=== PATIENT | male | born 1940 | race Caucasian/White ===

== ENCOUNTER 2017-01-07 12:34 | Emergency (ER) | payer MEDICARE, OTHER ==
[2017-01-07] MEDS ORDERED: METFORMIN HCL500 M2 PO (12:56)
[2017-01-07] MEDS ORDERED: OMEPRAZOLE40 M2 PO (12:57)
[2017-01-07] MEDS ORDERED: COZAAR50 M1 PO (12:57)
[2017-01-07] MEDS ORDERED: POTASSIUM CHLO20 ME3 PO (12:58)
[2017-01-07] MEDS ORDERED: LIPITOR20 M1 PO (12:58)
[2017-01-07] MEDS ORDERED: ASPIRIN81 M1 PO (12:59)
[2017-01-07] MEDS ORDERED: VITAMIN D1000 UNI2 PO (12:59)
== END 2017-01-07 14:13 ==
LOC: EDMED 12:34
DX: S00.93XA Contusion of unspecified part of head, initial encounter (principal); E11.9 Type 2 diabetes mellitus without complications; I10 Essential (primary) hypertension; Z88.0 Allergy status to penicillin; Z79.82 Long term (current) use of aspirin; Z79.899 Other long term (current) drug therapy; W19.XXXA Unspecified fall, initial encounter